=== PATIENT | male | born 1940 | race Caucasian/White ===

== ENCOUNTER → 2018-02-05 | Outpatient (CLI) | payer MEDICARE, MEDICAID ==
[~2018-02-05] MED LIST: AMLO1TAB92 PO; ASPI-496 PO; CIPR500T87 PO; GADOBUTROL 10 MMOL/10 ML PFS ONE; METH5TAB6 PO; METR500T PO; OXYC1TAB7 PO; TAMS-11 PO
== END | disposition home or self-care (01) ==
LOC: CFH 12:23
PROVIDERS: ATTEND Psychiatry & Neurology Neurology
DX: H46.9 Unspecified optic neuritis (principal); H47.091 Other disorders of optic nerve, not elsewhere classified, right eye
CPT/HCPCS: 70480; 70543; 82565; A9585

== ENCOUNTER 2019-08-24 12:00 | Emergency (ER) | payer MEDICAID, MEDICARE ==
[~2019-08-24] VITALS: Ht 182.9 cm; Wt 87.7 kg
[~2019-08-24 12:00] MED LIST changes: -GADOBUTROL 10 MMOL/10 ML PFS ONE
[2019-08-24 12:33] VITALS: BP 141/77
[2019-08-24 13:24] LABS: RAPID INFLUENZA A Negative (Negative); RAPID INFLUENZA B Negative (Negative)
== END 2019-08-24 14:07 | disposition home or self-care (01) ==
LOC: ED 14:01
DX: J06.9 Acute upper respiratory infection, unspecified (principal); I10 Essential (primary) hypertension; R05 Cough; E03.9 Hypothyroidism, unspecified; Z90.49 Acquired absence of other specified parts of digestive tract
CPT/HCPCS: 71046; 87400; 99284